=== PATIENT | male | born 1985 | race African-American/Black ===

== ENCOUNTER 2020-10-15 18:29 | Emergency (ER) | payer OTHER ==
[~2020-10-15] VITALS: Ht 175.3 cm; Wt 124.6 kg
[2020-10-15] MEDS ORDERED: IV NORMAL SALINE 1,000ML 1,000 ML IV ONE (18:45)
[2020-10-15] MEDS ORDERED: KETOROLAC 30 MG/ML VIAL. IVP ONE (18:45)
--- NOTE | 2020-10-15 18:49 | PHYS DOC ---
General Adult EDM: Chief Complaint: ABDOMINAL PAIN HPI: HPI: 35-year-old male presents with right upper quadrant abdominal pain. He has been having intermittent cramping pain in this area for last 2 weeks. It started more around the umbilicus but is more on the right side now. Today it is been more persistent he rates it as moderate. It is a cramping feeling not really sharp. He has had normal bowel movements. No urinary complaints. No history of pancreatitis or kidney stones. The patient is a daily alcohol drinker. He denies fever or chills. Review of Systems: Review of Systems: Constitutional: Denies fever or chills Eyes: Denies change in visual acuity HENT: Denies nasal congestion or sore throat Respiratory: Denies cough or shortness of breath Cardiovascular: Denies chest pain or edema GI: Right upper quadrant and epigastric abdominal pain. Denies nausea, vomiting, bloody stools or diarrhea : Denies dysuria Musculoskeletal: Denies back pain or joint pain Integument: Denies rash Neurologic: Denies headache, focal weakness or sensory changes Endocrine: Denies polyuria or polydipsia Lymphatic: Denies swollen glands Psychiatric: Denies depression or anxiety Current Medications: Current Meds: Current Medications Medications (Trade) Dose Ordered Sig/Tierra Start Time Stop Time Status Last Admin Dose Admin Ketorolac Tromethamine (Toradol 30mg Vial) 30 mg 1X ONCE 10/15/20 18:45 10/15/20 18:46 UNV Sodium Chloride 1,000 ml @ 1,000 mls/hr 1X ONCE 10/15/20 18:45 10/15/20 19:44 UNV Physical Exam: PE: Constitutional: Well developed, well nourished, morbidly obese, no acute distress, non-toxic appearance. [] HENT: Normocephalic, atraumatic, bilateral external ears normal, oropharynx moist, no oral exudates, nose normal. [] Eyes: PERRLA, EOMI, conjunctiva normal, no discharge. [] Neck: Normal range of motion, no tenderness, supple, no stridor. [] Cardiovascular: Heart rate regular rhythm, no murmur [] Lungs & Thorax: Bilateral breath sounds clear to auscultation [] Abdomen: Bowel sounds normal, soft, mild epigastric and right upper quadrant tenderness, no masses, no pulsatile masses. [] Skin: Warm, dry, no erythema, no rash. [] Back: No tenderness, no CVA tenderness. [] Extremities: No tenderness, no cyanosis, no clubbing, ROM intact, no edema. [] Neurologic: Alert and oriented X 3, normal motor function, normal sensory function, no focal deficits noted. [] Psychologic: Affect normal, judgement normal, mood normal. [] EKG: EKG: [] Radiology/Procedures: Radiology/Procedures: [] Impressions: CT abdomen and pelvis with contrast PQRS statement: CT scans at this facility use dose reduction including either automated exposure control, iterative reconstructions, and /or weight based radiation dosing via mA and kV modification when appropriate to reduce radiation dose to as low as reasonably achievable. Contrast: 75 mL Omnipaque 300 intravenous contrast. HISTORY: Right upper quadrant abdominal pain. Right flank pain. Abdomen findings: Splenomegaly measures 18 cm craniocaudal by 18 cm AP by 6 cm transverse. There may be hepatomegaly right hepatic lobe cranial caudal length 24 cm. Hypodense liver could be fatty. Dependent density within the gallbladder most likely a gallstone and prominent distention which has a diameter 6 cm. There is a recanalized periumbilical vein became with the internal mammary veins of the chest is outside the [id number]. Moderate atrophy of the pancreas. Small accessory spleen. Subcentimeter hypodensity right kidney too small to characterize presumably cysts. There is mild fat stranding of the left supra renal fat adjacent the spleen and adrenal glands there is no abnormal nephrogram and no significant renal edema evident and no hydronephrosis. Vessels demonstrate patent contrast enhancement. 3 cm oblong fatty umbilical abdominal wall hernia. No obstruction or inflammation GI tract. Appendix is negative. No abdominal fluid or adenopathy. Bones are unremarkable. Pelvis findings: There is asymmetric enlargement of the left common and external iliac veins and there is mild edema at the left extraperitoneal pelvis leading up to the groin associated with left iliac chain and inguinal adenopathy largest lymph node at the external iliac chain measuring 2.5 x 1.3 cm and at the groin measuring similarly. Bladder, prostate, rectum and bones are unremarkable. IMPRESSION: 1. Adenopathy of the left groin and at the left iliac chain of the pelvis. There is also enlargement of the left iliac vein and edema of the left groin and deep pelvis. This could represent reactive lymphadenitis from an infectious process at the groin or the pelvis. Pathologic adenopathy from lymphoma or metastatic disease is also a possibility. Reactive changes due to a DVT of the left iliac veins is also a possibility given the asymmetric enlargement of the left iliac veins. 2. Left suprarenal fat demonstrates mild stranding edema of uncertain etiology. There is no abnormal nephrogram or hydronephrosis of the kidney. 3. Hepatosplenomegaly. 4. Prominent distention of the gallbladder with a diameter of 6 cm and a gallstone. 5. The appendix is negative. 5. Other incidental findings as described above. Electronically signed by: Tracy Foreman MD (10/15/2020 7:43 PM) [facility] DICTATED AND SIGNED BY: TRACY FOREMAN MD DATE: 10/15/201933 CC: LORNEA LEONARD DO; PCP,NO ~MTH0 0 Heart Score: C/O Chest Pain: N/A Risk Factors: Risk Factors: DM, Current or recent (<one month) smoker, HTN, HLP, family history of CAD, obesity. Risk Scores: Score 0 - 3: 2.5% MACE over next 6 weeks - Discharge Home Score 4 - 6: 20.3% MACE over next 6 weeks - Admit for Clinical Observation Score 7 - 10: 72.7% MACE over next 6 weeks - Early Invasive Strategies Course & Med Decision Making: Course & Med Decision Making Pertinent Labs and Imaging studies reviewed. (See chart for details) The patient's labs remarkable for elevated liver enzymes and bilirubin. I ordered a direct bilirubin which is about 50%. The patient CT scan shows sever al abnormal findings. 1 of those is a very enlarged gallbladder with a large stone. Another incidental finding is enlargements of lymph nodes in the iliac chain. See official read for more details. The patient needs to have his gallbladder removed. I suspect that his labs are due to intermittent blockage based on the large stone that he has in the gallbladder. The patient is dealing with the pain well at home. I advised that he follow-up soon as possible with a surgeon to have his gallbladder removed. He also needs to follow-up with his primary physician for further evaluation and work-up of his other CT findings. He is stable for discharge at this time. [] Jose Disclaimer: Jose Disclaimer: This electronic medical record was generated, in whole or in part, using a voice recognition dictation system. Departure Departure: Impression: Primary Impression: Gall bladder disease Additional Impressions: Lymphadenopathy, inguinal Abnormal CT scan Disposition: HOME / SELF CARE / HOMELESS Condition: STABLE Referrals: PCPIESHA (PCP) Patient Instructions: Cholelithiasis, [id number] Additional Instructions: You need to follow-up with a surgeon to have your gallbladder removed as soon as possible. You also need to follow-up with your primary care physician to address your other abnormal findings on CT. LORENA LEONARD DO Oct 15, 2020 18:49
[2020-10-15] MEDS ORDERED: IOHEXOL 300 MG/ML 75 ML VIAL. IV ONE (19:00)
[2020-10-15 19:36] LABS: BASO % 0 % (0-3); EOS % 0 % (0-3); HEMATOCRIT 41.9 % (39.0-53.0); HEMOGLOBIN 14.2 g/dL (13.0-17.5); LYMPH # 0.6 x10^3/uL (1.0-4.8); LYMPH % 5 % (24-48); MEAN CORPUSCULAR HEMOGLOBIN 33 pg (25-35); MEAN CORPUSCULAR HGB CONC 34 g/dL (31-37); MEAN CORPUSCULAR VOLUME 98 fL (79-100); MONO # 0.8 x10^3/uL (0.0-1.1); MONO % 7 % (0-9); NEUT # 10.2 x10^3uL (1.8-7.7); NEUT % 87 % (31-73); PLATELET COUNT 80 x10^3/uL (140-400); RED BLOOD COUNT 4.26 x10^6/uL (4.30-5.70); RED CELL DISTRIBUTION WIDTH 15.2 % (11.5-14.5); WHITE BLOOD COUNT 11.6 x10^3/uL (4.0-11.0)
[2020-10-15 19:43] LABS: CALCIUM 8.8 mg/dL (8.5-10.1); CREATININE 0.8 mg/dL (0.7-1.3); GFR 133.1; POTASSIUM 4.3 mmol/L (3.5-5.1)
--- NOTE | 2020-10-15 19:46 | RAD ---
CT abdomen and pelvis with contrast PQRS statement: CT scans at this facility use dose reduction including either automated exposure cont rol, iterative reconstructions, and /or weight based radiation dosing via mA and kV modification when appropriate to reduce radiation dose to as low as reasonably achievable. Contrast: 75 mL Omnipaque 300 intravenous contrast. HISTORY: Right upper quadrant abdominal pain. Right flank pain. Abdomen findings: Splenomegaly measures 18 cm craniocaudal by 18 cm AP by 6 cm transverse. There may be hepatomegaly right hepatic lobe cranial caudal length 24 cm. Hypodense liver could be fatty. Depen dent density within the gallbladder most likely a gallstone and prominent distention which has a diam eter 6 cm. There is a recanalized periumbilical vein became with the internal mammary veins of the ch est is outside the [id number]. Moderate atrophy of the pancreas. Small accessory spleen. Subcentim eter hypodensity right kidney too small to characterize presumably cysts. There is mild fat stranding of the left suprarenal fat adjacent the spleen and adrenal glands there is no abnormal nephrogram an d no significant renal edema evident and no hydronephrosis. Vessels demonstrate patent contrast enhan cement. 3 cm oblong fatty umbilical abdominal wall hernia. No obstruction or inflammation GI tract. A ppendix is negative. No abdominal fluid or adenopathy. Bones are unremarkable. Pelvis findings: There is asymmetric enlargement of the left common and external iliac veins and ther e is mild edema at the left extraperitoneal pelvis leading up to the groin associated with left iliac chain and inguinal adenopathy largest lymph node at the external iliac chain measuring 2.5 x 1.3 cm and at the groin measuring similarly. Bladder, prostate, rectum and bones are unremarkable. IMPRESSION: 1. Adenopathy of the left groin and at the left iliac chain of the pelvis. There is also enlargement of the left iliac vein and edema of the left groin and deep pelvis. This could represent reactive lym phadenitis from an infectious process at the groin or the pelvis. Pathologic adenopathy from lymphoma or metastatic disease is also a possibility. Reactive changes due to a DVT of the left iliac veins i s also a possibility given the asymmetric enlargement of the left iliac veins. 2. Left suprarenal fat demonstrates mild stranding edema of uncertain etiology. There is no abnormal nephrogram or hydronephrosis of the kidney. 3. Hepatosplenomegaly. 4. Prominent distention of the gallbladder with a diameter of 6 cm and a gallstone. 5. The appendix is negative. 5. Other incidental findings as described above. Electronically signed by: Chalino Foreman MD (10/15/2020 7:43 PM) [facility]
[2020-10-15 19:48] LABS: ALBUMIN 3.3 g/dL (3.4-5.0); ALBUMIN/GLOBULIN RATIO 0.7 (1.0-1.7); TOTAL BILIRUBIN 5.6 mg/dL (0.2-1.0); TOTAL PROTEIN 7.8 g/dL (6.4-8.2)
[2020-10-15 21:13] LABS: BILIRUBIN,URINE MOD (NEG); CLARITY,URINE CLOUDY; COLOR,URINE AMBER; GLUCOSE,URINE 100 mg/dL (NEG); NITRITE,URINE NEG (NEG); UROBILINOGEN,URINE >=8.0 mg/dL (0.2 mg/dL)
[2020-10-15 21:26] LABS: BACTERIA,URINE 0 /HPF (0-FEW); WBC,URINE 0 /HPF (0-4)
[2020-10-15] MEDS ORDERED: ONDANSETRON PF 4 MG/2 ML VIAL. ONE ×2 (21:46→21:59)
[2020-10-15] MEDS ORDERED: MORPHINE SULFATE 2 MG/ML DISP.SYRIN. ONE (21:47)
[2020-10-15] MEDS ORDERED: METOCLOPRAMIDE HCL 10 MG/2 ML VIAL. ONE (21:59)
[2020-10-15] MEDS ORDERED: diphenhydrAMINE 50 MG/ML VIAL ONE (21:59)
[2020-10-15] MEDS ORDERED: MORPHINE SULFATE 2 MG/ML DISP.SYRIN. IV ONE (22:00)
[2020-10-15 22:06] VITALS: BP 160/90
[2020-10-15] MEDS ORDERED: ONDA4TAB12 PO (22:27)
[2020-10-15] MEDS ORDERED: METOCLOPRAMIDE HCL 10 MG/2 ML VIAL. IVP ONE (22:30)
[2020-10-15] MEDS ORDERED: diphenhydrAMINE 50 MG/ML VIAL IVP ONE (22:30)
[2020-10-15] MEDS ORDERED: ONDANSETRON PF 4 MG/2 ML VIAL. IVP ONE (22:30)
== END 2020-10-15 22:07 | disposition home or self-care (01) ==
LOC: ER 18:29
DX: K82.8 Other specified diseases of gallbladder (principal); R59.0 Localized enlarged lymph nodes; R93.5 Abnormal findings on diagnostic imaging of other abdominal regions, including retroperitoneum
CPT/HCPCS: 36415; 74177; 80053; 81001; 82248; 83690; 85025; 96361; 96374; 96375; 99285; J1200; J1885; J2405; J2765; J7030; Q9967

== ENCOUNTER 2021-01-30 21:47 | Emergency (ER) | payer SELFPAY ==
[~2021-01-30] VITALS: Ht 175.3 cm; Wt 119.2 kg
[~2021-01-30 21:47] MED LIST: ONDA4TAB12 PO
--- NOTE | 2021-01-30 21:56 | PHYS DOC ---
Past History Past Surgical History: Other Additional Past Surgical Histo: ankle surgery got infected in september 2019 Alcohol Use: Heavy Adult General HPI HPI Patient is a 35-year-old male, alcoholic, with last drink 2 days ago who presents with epigastric pain, nausea and vomiting for the last day. Review of Systems Review of Systems Review of systems otherwise unremarkable except noted in HPI Allergies Allergies Allergies Coded Allergies Type Severity Reaction Last Updated Verified codeine Allergy Intermediate 10/15/20 Yes Physical Exam Physical Exam Constitutional: Well developed, well nourished, no acute distress, non-toxic appearance. [] HENT: Normocephalic, atraumatic, bilateral external ears normal, oropharynx mo ist, no oral exudates, nose normal. [] Eyes: PERRLA, EOMI, conjunctiva normal, no discharge. [] Neck: Normal range of motion, no tenderness, supple, no stridor. [] Cardiovascular:Heart rate regular rhythm, no murmur [] Lungs & Thorax: Bilateral breath sounds clear to auscultation [] Abdomen: Bowel sounds normal, soft, no tenderness, no masses, no pulsatile masses. [] Skin: Warm, dry, no erythema, no rash. [] Back: No tenderness, no CVA tenderness. [] Extremities: No tenderness, no cyanosis, no clubbing, ROM intact, no edema. [] Neurologic: Alert and oriented X 3, normal motor function, normal sensory function, no focal deficits noted. [] Psychologic: Affect normal, judgement normal, mood normal. [] EKG EKG [] Radiology/Procedures Radiology/Procedures [] Heart Score C/O Chest Pain: No Risk Factors: Risk Factors: DM, Current or recent (<one month) smoker, HTN, HLP, family history of CAD, obesity. Risk Scores: Risk Factors: DM, Current or recent (<one month) smoker, HTN, HLP, family history of CAD, obesity. Course & Med Decision Making Course & Med Decision Making Patient is a 35-year-old male, who presents with epigastric pain, nausea and vomiting Vital signs notable for tachycardia and hypertension. Physical exam noted above. Patient placed on the monitor with IV access established and IV fluid given. Given nausea medicine. Laboratory analysis notable for elevated alk phos, direct and indirect bilirubin. CT with cholelithiasis with distended gallbladder, hepatosplenomegaly and hepatic steatosis Abdominal ultrasound with cholelithiasis and no evidence of cholecystitis, hepatomegaly, splenomegaly and fatty liver. Discussed all findings with patient. Given patient's symptoms, findings on imaging and laboratory analysis there is concern for biliary obstruction with choledocholithiasis and/or ascending cholangitis. Started on Zosyn. Advised admission to the hospital for continued evaluation treatment GI consult. Patient grateful, verbalized understanding and agreed with plan of transfer and admission [] Dragon Disclaimer Dragon Disclaimer This electronic medical record was generated, in whole or in part, using a voice recognition dictation system. Departure Departure: Impression: Primary Impression: Abdominal pain Additional Impressions: Nausea & vomiting Cholelithiasis Bilirubinemia Elevated alkaline phosphatase level Disposition: 02 SHORT TERM HOSPITAL Admitting Physician: Other Condition: IMPROVED Referrals: PCP,NO (PCP) Problem Qualifiers ADRIANNA PALOMO MD Jan 30, 2021 21:56
[2021-01-30] MEDS ORDERED: IOHEXOL 300 MG/ML 75 ML VIAL. IV ONE (22:00)
[2021-01-30] MEDS ORDERED: ONDANSETRON PF 4 MG/2 ML VIAL. IVP ONE ×2 (22:00→23:45)
[2021-01-30] MEDS ORDERED: METOCLOPRAMIDE HCL 10 MG/2 ML VIAL. IVP ONE (22:00)
[2021-01-30] MEDS ORDERED: CONTRAST GIVEN. MC PRN (22:00)
[2021-01-30] MEDS ORDERED: IV RINGERS SOLUTION,LACTATED 1,000 ML IV ONE (22:00)
--- NOTE | 2021-01-30 22:22 | EKG ---
[address] [address] Test Date: 2021-01-30 Test Time: 22:06:37 Pat Name: PHILIP AMAYA Department: Room: Gender: M Sound Effects Supervisor: KAELYN : 1985 Requested By: ADRIANNA PALOMO Order Number: [id number] Reading MD: Sid Moses MD Measurements Intervals [place] Rate: 109 P: 25 CO: 148 QRS: 18 QRSD: 90 T: 21 QT: 350 QTc: 473 Interpretive Statements SINUS TACHYCARDIA Electronically Signed On 01-31-2021 9:58:19 ACCELERATOR TECHNICIAN by Sid Moses MD
[2021-01-30 22:41] LABS: BASO % 1 % (0-3); EOS % 0 % (0-3); HEMATOCRIT 38.5 % (39.0-53.0); HEMOGLOBIN 13.1 g/dL (13.0-17.5); LYMPH # 1.4 x10^3/uL (1.0-4.8); LYMPH % 15 % (24-48); MEAN CORPUSCULAR HEMOGLOBIN 32 pg (25-35); MEAN CORPUSCULAR HGB CONC 34 g/dL (31-37); MEAN CORPUSCULAR VOLUME 94 fL (79-100); MONO # 0.7 x10^3/uL (0.0-1.1); MONO % 7 % (0-9); NEUT # 7.7 x10^3uL (1.8-7.7); NEUT % 78 % (31-73); PLATELET COUNT 88 x10^3/uL (140-400); RED BLOOD COUNT 4.09 x10^6/uL (4.30-5.70); WHITE BLOOD COUNT 9.9 x10^3/uL (4.0-11.0)
--- NOTE | 2021-01-30 22:45 | RAD ---
Exam: CT of abdomen and pelvis with contrast INDICATION: Epigastric pain TECHNIQUE: Sequential axial images through the abdomen and pelvis obtained following the administrati on of 75 mL of Isovue-370 IV contrast. Sagittal and coronal reformatted images were reconstructed fro m the axial data and reviewed. Exposure: One or more of the following in the visualized dose reduction techniques were utilized for this examination: 1. Automated exposure control 2. Adjustment of the MA and/or KV according to patient size 3. Use of iterative of reconstructive technique Comparisons: 10/15/2020 FINDINGS: Heart size is normal. No pericardial. Visualized lung bases are clear. No pleural effusion. Diffuse hepatic steatosis. Spleen is enlarged measuring up to 17.9 cm in long axis. Mild haziness bridget rounding the peripancreatic fat. Gallbladder is distended with gallstones noted within the gallbladde r.. Kidneys a straight symmetric enhancement. No perinephric inflammation or hydronephrosis. No renal or ureteral calculi are identified. Bladder is decompressed not well evaluated. Prostate is nonenlarged. Large and small bowel are unremarkable. Appendix is normal. No free intra-abdominal air or fluid. No obstruction. Abdominal aorta has a normal course and caliber. Abdominal vasculature is patent. No enlarged intra-abdominal lymph nodes are identified. No suspicious osseous lesions or acute fractures. IMPRESSION: 1. Small fat-containing umbilical hernia. No herniated bowel or evidence for obstruction. 2. Distended gallbladder with gallstone. Correlate with symptomatology to determine the need for fur ther evaluation with ultrasound. 3. Hepatosplenomegaly with diffuse hepatic steatosis. Electronically signed by: Gwen Branch MD (01/30/2021 10:43 PM) [facility]
[2021-01-30 22:46] LABS: BILIRUBIN,URINE SMALL (NEG); CLARITY,URINE CLEAR; COLOR,URINE YELLOW; GLUCOSE,URINE NEG (NEG); NITRITE,URINE POS (NEG)
[2021-01-30 22:47] LABS: BACTERIA,URINE 0 /HPF (0-FEW); RBC,URINE 0 /HPF (0-2); SQUAMOUS EPITHELIAL CELL,UR FEW /LPF; WBC,URINE OCC /HPF (0-4)
[2021-01-30 22:48] LABS: CALCIUM 9.4 mg/dL (8.5-10.1); CREATININE 0.8 mg/dL (0.7-1.3); GFR 133.1; POTASSIUM 3.7 mmol/L (3.5-5.1)
[2021-01-30 22:54] LABS: ALBUMIN 3.7 g/dL (3.4-5.0); ALBUMIN/GLOBULIN RATIO 0.7 (1.0-1.7); TOTAL BILIRUBIN 4.8 mg/dL (0.2-1.0); TOTAL PROTEIN 8.7 g/dL (6.4-8.2)
[2021-01-30] MEDS ORDERED: PIPERACILLIN/TAZOBACTAM 4.5 GM VIAL IV ONE (23:11)
[2021-01-30] MEDS ORDERED: IV NORMAL SALINE 50ML 50 ML ONE (23:11)
[2021-01-30] MEDS ORDERED: PIPERACILLIN/TAZOBACTAM 4.5 GM in IV NORMAL SALINE 50ML 50 ML IV ONE (23:15)
--- NOTE | 2021-01-31 00:24 | RAD ---
Complete Abdominal Ultrasound: Clinical History: Right upper quadrant. Technique: Sonographic examination of the abdomen was performed and multiple static images were obta ined. Findings: Liver: The majority is visualized and appears homogeneous. Liver measures 23 centers in length. There is increased echogenicity which further limits ultrasound sensitivity for possible solid liver lesio n. Common bile duct: Appears normal measures 5 mm in diameter. Gallbladder: There is multiple stones in the gallbladder. Portal vein: Appears normal. Pancreas: is not well visualized due to overlying bowel gas. Right kidney: appears normal and measures 11 cm in length. Left kidney appears normal and measures 12 cm in length. Spleen: Mildly more enlarged measuring 14 cm in length Impression: 1. Fatty infiltration of the liver. 2. Hepatomegaly. 3. Splenomegaly could be secondary to portal hypertension. 4. Cholelithiasis without evidence of acute cholecystitis. Electronically signed by: Merritt Olivas III, MD (01/31/2021 12:22 AM) [facility]
[2021-01-31] MEDS ORDERED: KETOROLAC 30 MG/ML VIAL. ONE (00:43)
[2021-01-31] MEDS ORDERED: IV RINGERS SOLUTION,LACTATED 1,000 ML IV ONE (00:45)
[2021-01-31] MEDS ORDERED: KETOROLAC 15 MG/ML VIAL. IVP ONE (00:45)
[2021-01-31 02:32] VITALS: BP 146/98
== END 2021-01-31 02:35 | disposition short-term general hospital (02) ==
LOC: ER 21:47
DX: K80.20 Calculus of gallbladder without cholecystitis without obstruction (principal); E80.4 Gilbert syndrome; R79.89 Other specified abnormal findings of blood chemistry; R10.13 Epigastric pain; R11.2 Nausea with vomiting, unspecified; F10.20 Alcohol dependence, uncomplicated; Z20.822 Contact with and (suspected) exposure to COVID-19; Z88.5 Allergy status to narcotic agent; Y90.9 Presence of alcohol in blood, level not specified
CPT/HCPCS: 36415; 74177; 76700; 80053; 81001; 82248; 83690; 84484; 85025; 87086; 87426; 93005; 96361; 96365; 96375; 96376; 99285; C9803; J1885; J2405; J2543; J2765; J7120; Q9967; U0003

== ENCOUNTER 2021-03-06 17:06 | Inpatient (IN) | payer SELFPAY ==
[~2021-03-06] VITALS: Ht 175.3 cm; Wt 122.1 kg
[2021-03-06] MEDS ORDERED: ONDANSETRON PF 4 MG/2 ML VIAL. IVP ONE ×2 (18:30→21:30)
[2021-03-06] MEDS ORDERED: IV NORMAL SALINE 1,000ML 1,000 ML IV ONE (18:30)
[2021-03-06 18:38] LABS: BASO % 0 % (0-3); EOS % 0 % (0-3); HEMATOCRIT 41.8 % (39.0-53.0); LYMPH # 0.8 x10^3/uL (1.0-4.8); LYMPH % 5 % (24-48); MEAN CORPUSCULAR HEMOGLOBIN 32 pg (25-35); MEAN CORPUSCULAR HGB CONC 33 g/dL (31-37); MEAN CORPUSCULAR VOLUME 95 fL (79-100); MONO # 0.9 x10^3/uL (0.0-1.1); MONO % 6 % (0-9); NEUT # 13.4 x10^3uL (1.8-7.7); NEUT % 89 % (31-73); PLATELET COUNT 85 x10^3/uL (140-400); RED CELL DISTRIBUTION WIDTH 15.2 % (11.5-14.5); WHITE BLOOD COUNT 15.1 x10^3/uL (4.0-11.0)
[2021-03-06 18:51] LABS: CREATININE 0.9 mg/dL (0.7-1.3); GFR 116.2; POTASSIUM 3.8 mmol/L (3.5-5.1)
[2021-03-06 19:03] LABS: ALBUMIN 3.6 g/dL (3.4-5.0); ALBUMIN/GLOBULIN RATIO 0.7 (1.0-1.7); TOTAL PROTEIN 8.7 g/dL (6.4-8.2)
--- NOTE | 2021-03-06 19:37 | EKG ---
[address] [address] Test Date: 2021-03-06 Test Time: 18:51:23 Pat Name: PHILIP AMAYA Department: Room: Gender: M Card Runner: : 1985 Requested By: CAMERON PATEL Order Number: [id number] Reading MD: Measurements Intervals [place] Rate: 119 P: 255 ND: 98 QRS: 19 QRSD: 88 T: 16 QT: 324 QTc: 456 Interpretive Statements SINUS TACHYCARDIA OTHERWISE NORMAL ECG RI6.02 No previous ECG available for comparison
[2021-03-06 19:43] LABS: % BANDS 11 % (0-9); % LYMPHS 9 % (24-48); % MONOS 3 % (0-10); % SEGS 77 % (35-66); PLT ESTIMATE DECREASED (ADEQUATE)
--- NOTE | 2021-03-06 20:05 | PHYS DOC ---
Past History Past Surgical History: Other Additional Past Surgical Histo: left ankle (CAMERON PATEL APRN) Alcohol Use: Heavy (CAMERON PATEL APRN) General Adult EDM: Chief Complaint: WITHDRAWAL HPI: HPI: Patient is a 35-year-old male who presents with nausea, anxiety. Patient states that he is a daily drinker and drinks 1/5 of whiskey daily. Patient has not had a drink since last night. Patient's sinus tachycardic on arrival, heart rate 119. Denies abdominal pain, vomiting or diarrhea. Denies fever or recent exposure to illness. Longest time frame patient has been without alcohol has been 1 week which was 5 months ago. Patient denies having seizures. Patient did report feeling nauseated and anxious at that time as well. Denies tobacco use or illegal drugs. Patient is not vaccinated for COVID-19. Patient has history of hypertension, asthma, insomnia. (CAMERON PATEL APRN) Review of Systems: Review of Systems: ROS At least 10 ROS systems have been reviewed and are negative except as documented in the HPI. General: Negative except as outlined in HPI above. Skin: Negative except as outlined in HPI above. HEENT: Negative except as outlined in HPI above. Neck: Negative except as outlined in HPI above. Respiratory: Negative except as outlined in HPI above.. Cardiovascular: Negative except as outlined in HPI above. Abdomen: Negative except as outlined in HPI above. : Negative except as outlined in HPI above. Back/MSK: Negative except as outlined in HPI above. Neuro: Negative except as outlined in HPI above. Psych: Negative except as outlined in HPI above. (CAMERON PATEL APRN) Current Medications: Current Meds: Current Medications Medications (Trade) Dose Ordered Sig/Tierra Start Time Stop Time Status Last Admin Dose Admin Lorazepam (Ativan Inj) 2 mg 1X ONCE 03/06/21 18:30 03/06/21 18:31 DC 03/06/21 18:25 2 MG Ondansetron HCl (Zofran) 4 mg 1X ONCE 03/06/21 18:30 03/06/21 18:31 DC 03/06/21 18:24 4 MG Sodium Chloride 1,000 ml @ 1,000 mls/hr 1X ONCE 03/06/21 18:30 03/06/21 19:29 DC 03/06/21 18:24 1,000 MLS/HR (CAMERON PATEL APRN) Allergies: Allergies: Allergies Coded Allergies Type Severity Reaction Last Updated Verified codeine Allergy Intermediate 10/15/20 Yes (CAMERON PATEL APRN) Physical Exam: PE: Constitutional: Well developed, well nourished, no acute distress, non-toxic appearance. [] HENT: Normocephalic, atraumatic, bilateral external ears normal, oropharynx moist, no oral exudates, nose normal. [] Eyes: PERRLA, EOMI, conjunctiva normal, no discharge. [] Neck: Normal range of motion, no tenderness, supple, no stridor. [] Cardiovascular:Heart rate sinus tachycardia Lungs & Thorax: Bilateral breath sounds clear to auscultation [] Abdomen: Bowel sounds normal, soft, no tenderness, no masses, no pulsatile masses. [] Skin: Warm, dry, no erythema, no rash. [] Back: No tenderness, no CVA tenderness. [] Extremities: No tenderness, no cyanosis, no clubbing, ROM intact, no edema. [] Neurologic: Alert and oriented X 3, normal motor function, normal sensory function, no focal deficits noted. [] Psychologic: Affect normal, judgement normal, anxious mood (CAMERON PATEL APRN) Current Patient Data: Labs: Laboratory Tests Test 03/06/21 18:18 White Blood Count 15.1 x10^3/uL (4.0-11.0) H Red Blood Count 4.40 x10^6/uL (4.30-5.70) Hemoglobin 14.0 g/dL (13.0-17.5) Hematocrit 41.8 % (39.0-53.0) Mean Corpuscular Volume 95 fL (79-100) Mean Corpuscular Hemoglobin 32 pg (25-35) Mean Corpuscular Hemoglobin Concent 33 g/dL (31-37) Red Cell Distribution Width 15.2 % (11.5-14.5) H Platelet Count 85 x10^3/uL (140-400) L Neutrophils (%) (Auto) 89 % (31-73) H Lymphocytes (%) (Auto) 5 % (24-48) L Monocytes (%) (Auto) 6 % (0-9) Eosinophils (%) (Auto) 0 % (0-3) Basophils (%) (Auto) 0 % (0-3) Neutrophils # (Auto) 13.4 x10^3uL (1.8-7.7) H Lymphocytes # (Auto) 0.8 x10^3/uL (1.0-4.8) L Monocytes # (Auto) 0.9 x10^3/uL (0.0-1.1) Eosinophils # (Auto) 0.0 x10^3/uL (0.0-0.7) Basophils # (Auto) 0.0 x10^3/uL (0.0-0.2) Segmented Neutrophils % 77 % (35-66) H Band Neutrophils % 11 % (0-9) H Lymphocytes % 9 % (24-48) L Monocytes % 3 % (0-10) Platelet Estimate Decreased (ADEQUATE) Sodium Level 139 mmol/L (136-145) Potassium Level 3.8 mmol/L (3.5-5.1) Chloride Level 102 mmol/L (98-107) Carbon Dioxide Level 21 mmol/L (21-32) Anion Gap 16 (6-14) H Blood Urea Nitrogen 8 mg/dL (8-26) Creatinine 0.9 mg/dL (0.7-1.3) Estimated GFR (Cockcroft-Gault) 116.2 BUN/Creatinine Ratio 9 (6-20) Glucose Level 130 mg/dL (70-99) H Calcium Level 9.0 mg/dL (8.5-10.1) Total Bilirubin 5.0 mg/dL (0.2-1.0) H Aspartate Amino Transferase (AST) 96 U/L (15-37) H Alanine Aminotransferase (ALT) 43 U/L (16-63) Alkaline Phosphatase 102 U/L (46-116) Total Protein 8.7 g/dL (6.4-8.2) H Albumin 3.6 g/dL (3.4-5.0) Albumin/Globulin Ratio 0.7 (1.0-1.7) L Lipase 57 U/L (73-393) L Ethyl Alcohol Level < 10 mg/dL (0-10) Vital Signs: Vital Signs Date Time Temp Pulse Resp B/P (MAP) Pulse Ox O2 Delivery O2 Flow Rate FiO2 03/06/21 17:40 98.2 120 18 175/99 (124) 97 (PATELCAMERON MEDICAL INSTRUCTOR) EKG: EKG: Sinus tachycardia, heart rate 119 bpm. [] (CAMERON PATEL APRN) Radiology/Procedures: Radiology/Procedures: [] (CAMERON PATEL APRN) Heart Score: C/O Chest Pain: No Risk Factors: Risk Factors: DM, Current or recent (<one month) smoker, HTN, HLP, family history of CAD, obesity. Risk Scores: Score 0 - 3: 2.5% MACE over next 6 weeks - Discharge Home Score 4 - 6: 20.3% MACE over next 6 weeks - Admit for Clinical Observation Score 7 - 10: 72.7% MACE over next 6 weeks - Early Invasive Strategies (CAMERON PATEL APRN) Course & Med Decision Making: Course & Med Decision Making Pertinent Labs and Imaging studies reviewed. (See chart for details) [] 35-year-old male who presents with nausea and anxiety. Patient is a daily drinker and has not had a drink for over 24 hours. Denies any seizures from alcohol withdrawal. Work-up in ER consisted of urinalysis, alcohol level, UDS, labs. Patient's anxiety and nausea treated while in the emergency room. Heart rate elevated at 119. Patient given NS bolus. WBC, 15.1. Total bilirubin, 5.0. Alcohol level is negative. CIWA score 12. Urinalysis, UDS, and CT of abdomen pelvis are still pending. Previous CT in January showed Fatty infiltration of the liver. Hepatomegaly.Splenomegaly could be secondary to portal hyperten kristen.Cholelithiasis without evidence of acute cholecystitis. Discussed lab results with patient. Patient still complaining of anxiety. Patient given second dose of Ativan. Patient also given banana bag. Patient reports that nausea has resolved after medication. Patient is still tachycardic after fluid administration, heart rate of 123. Patient will be admitted for alcohol withdrawal. Spoke with Dr. Muhammad who will be accepting patient. (CAMERON PATEL APRN) Course & Med Decision Making Endorsed to Dr. Heath at shift change- pending bed placement in hospital- Nursing shortage (JINA TENA MD) Rafaon Disclaimer: Dragliseth Disclaimer: This electronic medical record was generated, in whole or in part, using a voice recognition dictation system. (CAMERON PATEL APRN) Departure Departure: Impression: Primary Impression: Alcohol abuse with withdrawal Disposition: ADMITTED INPATIENT Admitting Physician: Marianne Muhammad (CAMERON PATEL APRN) Condition: STABLE Referrals: PCP,IESHA (PCP) Attending Signature Attending Signature I have participated in the care of this patient and I have reviewed and agree with all pertinent clinical information above including history, exam, and recommendations. (JINA TENA MD) Attending Signature Attending Signature I have participated in the care of this patient and I have reviewed and agree with all pertinent clinical information above including history, exam, and recommendations. (JINA TENA MD) CAMERON PATEL APRN Mar 06, 2021 20:05 JINA TENA MD Mar 07, 2021 00:47
[2021-03-06] MEDS ORDERED: MVI, ADULT NO.4 WITH VIT K 10 ML, FOLIC ACID INJ 1 MG, THIAMINE INJ 100 MG in IV RINGER... IV ONE (22:00)
[2021-03-06] MEDS ORDERED: FOLIC ACID 1 MG TABLET ONE (22:05)
[2021-03-06] MEDS ORDERED: THIAMINE 200 MG/2 ML VIAL. IV ONE (22:05)
[2021-03-06] MEDS ORDERED: MVI, ADULT NO.4 WITH VIT K 10 ML VIAL IV ONE (22:05)
--- NOTE | 2021-03-06 23:08 | RAD ---
EXAM: CT Abdomen and Pelvis without IV contrast CLINICAL HISTORY: Reason: N/V, BLOOD IN URINE, LEFT FLANK PAIN / Spl. Instructions: / History: . COMPARISON: none TECHNIQUE: Helical CT of the abdomen and pelvis without intravenous contrast. Axial, coronal and sagi ttal reformatted images were generated. PQRS compliance statement - One or more of the following individualized dose reduction techniques wer e utilized for this study: 1. Automated exposure control 2. Adjustment of the mA and/or kV according to patient size 3. Use of iterative reconstruction technique FINDINGS: Lack of intravenous contrast limits evaluation of solid organs, vasculature, and lymph nodes. Lower chest: Lung bases are clear. Abdomen and Pelvis: Hepatic hypoattenuation, fatty liver. Calcified gallstone is seen within the gallbladder. No wall thi ckening or pericholecystic fluid. No biliary ductal dilatation. Pancreas is unremarkable. Spleen is e nlarged measuring approximately 18 cm in AP dimension. Adrenal glands are unremarkable. No renal trac t calculus. No focal renal lesion. No hydronephrosis. No hydroureter. Diffuse bladder wall thickening likely cystitis. Moderate colonic stool content is seen. No small or large bowel dilatation. No spencer l obstruction. No abdominal or pelvic ascites. No abdominal or pelvic lymphadenopathy. Small fat-cont aining periumbilical hernia is seen. Aorta is normal in caliber. Bones: No aggressive osseous lesion is seen. IMPRESSION: 1. No renal tract calculus. 2. Bladder wall thickening, may be seen with cystitis and can be correlated with urinalysis. 3. Splenomegaly. 4. Moderate colonic stool content. 5. Cholelithiasis without CT evidence for acute cholecystitis. Electronically signed by: Keon Gill MD (03/06/2021 11:05 PM) [facility]
[2021-03-06 23:22] LABS: BARBITURATES NEG (NEG); BENZODIAZEPINES NEG (NEG); CANNABINOIDS NEG (NEG); COCAINE NEG (NEG); METHADONE NEG (NEG); OPIATES NEG (NEG); PHENCYCLIDINE NEG (NEG)
[2021-03-06 23:23] LABS: AMPHETAMINE/METHAMPHETAMINE POS (NEG)
[2021-03-07] MEDS ORDERED: KETOROLAC 30 MG/ML VIAL. ONE (00:47)
[2021-03-07] MEDS ORDERED: KETOROLAC 30 MG/ML VIAL. IVP ONE ×3 (01:00→17:00)
[2021-03-07] MEDS: IV NORMAL SALINE 1,000ML 1,000 ML IV SCH ×2 (01:34→11:20)
[2021-03-07 05:27] LABS: BASO % 0 % (0-3); EOS % 0 % (0-3); HEMATOCRIT 36.1 % (39.0-53.0); HEMOGLOBIN 12.1 g/dL (13.0-17.5); LYMPH # 0.6 x10^3/uL (1.0-4.8); LYMPH % 5 % (24-48); MEAN CORPUSCULAR HEMOGLOBIN 32 pg (25-35); MEAN CORPUSCULAR HGB CONC 33 g/dL (31-37); MEAN CORPUSCULAR VOLUME 95 fL (79-100); MONO # 0.7 x10^3/uL (0.0-1.1); MONO % 5 % (0-9); NEUT # 11.3 x10^3uL (1.8-7.7); NEUT % 89 % (31-73); PLATELET COUNT 69 x10^3/uL (140-400); RED BLOOD COUNT 3.82 x10^6/uL (4.30-5.70); RED CELL DISTRIBUTION WIDTH 15.1 % (11.5-14.5); WHITE BLOOD COUNT 12.7 x10^3/uL (4.0-11.0)
[2021-03-07 05:38] LABS: CREATININE 0.9 mg/dL (0.7-1.3); GFR 116.2
[2021-03-07 05:46] LABS: ALBUMIN 2.9 g/dL (3.4-5.0); ALBUMIN/GLOBULIN RATIO 0.7 (1.0-1.7); MAGNESIUM 1.1 mg/dL (1.8-2.4); TOTAL BILIRUBIN 5.3 mg/dL (0.2-1.0)
[2021-03-07] MEDS: ONDANSETRON PF 4 MG/2 ML VIAL. IVP PRN ×2 (10:43→17:05)
[2021-03-07 22:00] VITALS: BP 140/90
[2021-03-07] MEDS ORDERED: BUPR8TAB SL (22:44)
[2021-03-07] MEDS ORDERED: BUDE10.2 IH (22:44)
[2021-03-07] MEDS ORDERED: PRED-220 PO (22:44)
[2021-03-07] MEDS ORDERED: ZOLP5TAB PO (22:44)
[2021-03-07] MEDS ORDERED: ALBU2.5V8 INH (22:44)
[2021-03-07] MEDS ORDERED: IBUP400T18 PO (22:45)
[2021-03-08 05:02] VITALS: BP 157/118
[2021-03-08 05:04] VITALS: BP 126/86
[2021-03-08 10:06] LABS: ALBUMIN/GLOBULIN RATIO 0.7 (1.0-1.7); CALCIUM 8.3 mg/dL (8.5-10.1); GFR 102.9; POTASSIUM 3.8 mmol/L (3.5-5.1); TOTAL BILIRUBIN 4.7 mg/dL (0.2-1.0); TOTAL PROTEIN 7.6 g/dL (6.4-8.2)
--- NOTE | 2021-03-08 10:22 | RAD ---
EXAM: Left ankle sonogram. HISTORY: Soft tissue wound and swelling. TECHNIQUE: Sonographic imaging of the left ankle was performed. COMPARISON: None. FINDINGS: There is a complex fluid collection within the superficial soft tissues of the posterior an kle at the site of a soft tissue wound, measuring 2.8 x 2.7 x 1.6 cm. There is approximately 9 mm mandy p to the skin surface. There is medial ankle soft tissue edema, without a discrete collection. IMPRESSION: 1. 2.8 cm suspected abscess within the posterior ankle soft tissues at the level of a soft tissue wou nd. 2. Medial ankle soft tissue edema. Electronically signed by: Teresa De Guzman MD (03/08/2021 10:20 AM) [id number]
[2021-03-08 10:33] LABS: BASO % 0 % (0-3); EOS % 0 % (0-3); HEMATOCRIT 36.8 % (39.0-53.0); HEMOGLOBIN 12.4 g/dL (13.0-17.5); LYMPH # 1.7 x10^3/uL (1.0-4.8); LYMPH % 15 % (24-48); MEAN CORPUSCULAR HEMOGLOBIN 32 pg (25-35); MEAN CORPUSCULAR HGB CONC 34 g/dL (31-37); MEAN CORPUSCULAR VOLUME 95 fL (79-100); MONO # 0.9 x10^3/uL (0.0-1.1); MONO % 7 % (0-9); NEUT # 9.2 x10^3uL (1.8-7.7); NEUT % 78 % (31-73); PLATELET COUNT 70 x10^3/uL (140-400); RED BLOOD COUNT 3.89 x10^6/uL (4.30-5.70); RED CELL DISTRIBUTION WIDTH 14.9 % (11.5-14.5); WHITE BLOOD COUNT 11.8 x10^3/uL (4.0-11.0)
[2021-03-08 11:22] VITALS: BP 138/101
[2021-03-08] MEDS ORDERED: cloNIDine HCL 0.1 MG TABLET PO PRN (12:00)
[2021-03-08 15:49] VITALS: BP 136/88
[2021-03-08 15:57] LABS: BACTERIA,URINE 0 /HPF (0-FEW); BILIRUBIN,URINE SMALL (NEG); CLARITY,URINE CLEAR; COLOR,URINE YELLOW; GLUCOSE,URINE 100 mg/dL (NEG); NITRITE,URINE NEG (NEG); SQUAMOUS EPITHELIAL CELL,UR FEW /LPF; UROBILINOGEN,URINE >=8.0 mg/dL (0.2 mg/dL)
[2021-03-08] MEDS ORDERED: KETOROLAC 30 MG/ML VIAL. IM ONE (16:15)
[2021-03-08] MEDS ORDERED: ALBUTEROL SULFATE 2.5 MG/3 ML NEBU. INH PRN (16:15)
--- NOTE | 2021-03-08 16:48 | HP ---
DATE OF SERVICE: 03/08/2021 ADMIT DATE: 03/06/2021 HISTORY OF PRESENT ILLNESS: The patient is a 35-year-old -[place] male patient who came to the Emergency Room complaining of nausea and anxiety. He states that he is a daily drinker, drinks about a fifth of whiskey daily. He has not had a drink since 03/05 and the patient was in sinus tachycardia on arrival with a heart rate of 119. He denied any abdominal pain, vomiting or diarrhea. Denied any fever or recent exposure to illness. He stated that he stayed for about a week without any alcohol for the last 5 months. He denied having any seizures. Did report feeling nauseated and anxious at that time as well. Denied any tobacco or illegal drug use. He was not vaccinated for COVID-19. He was evaluated in the Emergency Room and apparently was started on alcohol withdrawal protocol. He was also found to have left lower extremity cellulitis, marked swelling of his left ankle joint. For some reason, the patient has not received any treatment in the Emergency Room for that. In fact, the plan was for him to go to an inpatient psychiatric unit for alcohol detoxification as he was seen by the psychiatric assessment team, but no placement was found for him and therefore, the patient was admitted for treatment of alcohol withdrawal and to take care of his other medical problems. PAST MEDICAL HISTORY: Significant for hypertension, bronchial asthma and alcoholism. PAST SURGICAL HISTORY: Significant for cyst removal on the right side of the neck and right elbow and fracture of the left ankle joint that was treated with open reduction and internal fixation. ALLERGIES: HE IS ALLERGIC TO CODEINE. MEDICATIONS: He is currently on the following medications: He is on albuterol sulfate by inhaler every 4 hours, ibuprofen 400 mg every 6 hours as needed, buprenorphine 8 mg sublingually daily. He is on Ambien 5 mg at bedtime. He is on Symbicort 160/4.5 mcg inhaler 2 puffs twice a day, ondansetron 4 mg every 6-8 hours and prednisone 10 mg daily p.r.n. for shortness of breath. FAMILY HISTORY: Has two sisters, one brother, older. His mother at age of 54 because of lung cancer. Father in his 60s because of pancreatic cancer. SOCIAL HISTORY: He is engaged, has 3 children. He does not smoke, but drinks a fifth of whiskey and does not use any drugs. He works for the [employer]. PHYSICAL EXAMINATION: GENERAL: When I examined him, he looked somewhat pale, not jaundiced or cyanosed, no lymphadenopathy, no thyromegaly, no jugular venous distention. No lower limb edema. He does have swelling of his left lower extremity, more so than the right lower extremity. VITAL SIGNS: His heart rate on arrival was 120, blood pressure is 175/99, temperature was 98.2, respiratory rate 18, and oxygen saturation was 97%. HEAD, EYES, EARS, NOSE, AND THROAT: Normocephalic, atraumatic. NECK: Supple. HEART: Showed normal first and second heart sounds. No gallop, rub or murmur. CHEST: Clear to auscultation, no crepitation or rhonchi. ABDOMEN: Distended, soft, nontender. NEUROLOGIC: He was awake, alert, responding appropriately. All cranial nerves intact. He moves his extremities without difficulty, although he has pain in his left foot, marked swelling and ecchymosis. LABORATORY DATA: His lab work on arrival showed a white cell count of 15,000, hemoglobin was 14, hematocrit 42, MCV 95 and platelet count was 85,000 with normal manual differential. His chemistry on arrival showed a serum sodium 139, potassium 3.8, chloride 102, bicarbonate 21, anion gap of 16, BUN 8, creatinine 0.9. Estimated GFR was 116 mL per minute. His glucose was 130, calcium was 9. Total bilirubin was 5, AST, ALT slightly elevated. Alkaline phosphatase is normal. Total protein 8.7, albumin 3.6, lipase was 57. His urinalysis was unremarkable. Toxic screen was positive for amphetamine, methamphetamine. His coronavirus by PCR was negative. He had nonvascular ultrasound of the left ankle joint, which showed that patient has a complex fluid collection within the superficial soft tissue of the posterior ankle at the site of the soft tissue wound, measuring 2.8 x 2.7 x 1.6 cm. This is approximately 9 mm deep to the skin surface. There is a medial ankle soft tissue edema without discrete collection. His CT scan of the abdomen and pelvis without contrast showed the patient has no renal tract calculi, bladder wall thickening may be seen with cystitis or can be correlated with urinalysis. He has splenomegaly, moderate colonic stool content, cholelithiasis without CT evidence of acute cholecystitis. ASSESSMENT AND PLAN: The patient was admitted and started on alcohol withdrawal protocol; however, when I saw him, he has clear evidence of left lower extremity cellulitis and has obviously an abscess in the left ankle, so my plan is to start him on IV antibiotic in the form of IV vancomycin and Zosyn. We will start him on some IV fluid. Continue with alcohol withdrawal protocol. I reconciled all his medication and he probably eventually needs to be transferred to [facility] for incision and drainage of his abscess in the left ankle joint. TIAN DR: Zhanna TID: [id number]
[2021-03-08] MEDS: VANCOMYCIN PER PHARMACY MC PRN (17:01)
--- NOTE | 2021-03-08 17:22 | RAD ---
Left foot 2 views, left ankle 2 views. HISTORY: Pain and swelling Left foot 2 views were taken of the left foot. There is extensive soft tissue swelling. There is no fracture or bony destructive process. Left ankle 2 views were taken the left ankle. There is extensive soft tissue swelling. There is an old fracture the mid fibula. There are small defects in the bones at the distal tibia and fibula probably related to old surgery. An acute ankle fracture is not identified. IMPRESSION: 1. Old healed fracture of the fibula. 2. Changes likely from old surgeries at the ankle. 3. No acute ankle fracture noted. 4. No fracture or acute osseous abnormality left foot. 5. Extensive soft tissue swelling. Electronically signed by: Vinh Ha MD (03/08/2021 5:19 PM) [facility]
[2021-03-08] MEDS: MULTIVITAMIN with MINERAL TABLET. PO SCH (17:29)
[2021-03-08] MEDS: FOLIC ACID 1 MG TABLET PO SCH (17:29)
[2021-03-08] MEDS: THIAMINE 100 MG TABLET. PO SCH (17:29)
[2021-03-08] MEDS ORDERED: VANCOMYCIN 2 GM in IV NORMAL SALINE 500ML 500 ML IV ONE (18:30)
[2021-03-08 19:31] VITALS: BP 143/87
[2021-03-08] MEDS: BUDESONIDE 0.5 MG/2 ML NEBU NEB SCH (20:00)
[2021-03-08] MEDS: ALBUTEROL SULFATE 2.5 MG/3 ML NEBU. NEB SCH (20:00)
[2021-03-08] MEDS: ZOLPIDEM 5 MG TABLET. PO PRN (20:43)
[2021-03-08] MEDS: PIPERACILLIN/TAZOBACTAM 3.375 GM in IV NORMAL SALINE 50ML 50 ML IV SCH ×2 (20:43→23:55)
[2021-03-08] MEDS ORDERED: NON FORMULARY ITEM (Budesonide/Formoterol Fumarate (Symbicort 160-4.5 Mcg Inhaler) 2 PUFF) IH SCH (21:00)
[2021-03-09 01:28] VITALS: BP 132/93
[2021-03-09] MEDS: PIPERACILLIN/TAZOBACTAM 3.375 GM in IV NORMAL SALINE 50ML 50 ML IV SCH ×3 (05:51→17:37)
[2021-03-09 06:08] VITALS: BP 131/89
[2021-03-09] MEDS: VANCOMYCIN 1.75 GM in IV NORMAL SALINE 500ML 500 ML IV SCH ×2 (06:36→18:13)
[2021-03-09] MEDS: BUDESONIDE 0.5 MG/2 ML NEBU NEB SCH (06:40)
[2021-03-09] MEDS: ALBUTEROL SULFATE 2.5 MG/3 ML NEBU. NEB SCH (06:41)
[2021-03-09 07:17] LABS: BASO % 0 % (0-3); EOS # 0.2 x10^3/uL (0.0-0.7); EOS % 3 % (0-3); HEMATOCRIT 34.8 % (39.0-53.0); HEMOGLOBIN 11.7 g/dL (13.0-17.5); LYMPH # 2.1 x10^3/uL (1.0-4.8); LYMPH % 26 % (24-48); MEAN CORPUSCULAR HEMOGLOBIN 32 pg (25-35); MEAN CORPUSCULAR HGB CONC 34 g/dL (31-37); MEAN CORPUSCULAR VOLUME 95 fL (79-100); MONO # 0.9 x10^3/uL (0.0-1.1); MONO % 12 % (0-9); NEUT # 4.7 x10^3uL (1.8-7.7); NEUT % 59 % (31-73); PLATELET COUNT 68 x10^3/uL (140-400); RED BLOOD COUNT 3.67 x10^6/uL (4.30-5.70); RED CELL DISTRIBUTION WIDTH 15.1 % (11.5-14.5)
[2021-03-09 07:30] LABS: ALBUMIN 2.6 g/dL (3.4-5.0); ALBUMIN/GLOBULIN RATIO 0.6 (1.0-1.7); CALCIUM 8.1 mg/dL (8.5-10.1); CREATININE 0.9 mg/dL (0.7-1.3); GFR 116.2; POTASSIUM 3.5 mmol/L (3.5-5.1); TOTAL BILIRUBIN 3.3 mg/dL (0.2-1.0); TOTAL PROTEIN 6.7 g/dL (6.4-8.2)
[2021-03-09] MEDS: MULTIVITAMIN with MINERAL TABLET. PO SCH (08:37)
[2021-03-09] MEDS: LACTOBACILLUS RHAMNOSUS GG 1 CAPSULE. PO SCH ×2 (08:37→20:30)
[2021-03-09] MEDS: THIAMINE 100 MG TABLET. PO SCH (08:37)
[2021-03-09] MEDS: FOLIC ACID 1 MG TABLET PO SCH (08:37)
[2021-03-09] MEDS: predniSONE 10 MG TABLET. PO SCH (08:37)
[2021-03-09] MEDS ORDERED: BUPRENORPHINE HCL SL SCH (09:00)
[2021-03-09 11:06] VITALS: BP 130/90
--- NOTE | 2021-03-09 13:36 | PN ---
DATE: 03/09/2021 ATTENDING PHYSICIANS: Dr. Muhammad/Dr. Coughlin. SUBJECTIVE: He wants to go home. He has very little insight. He understands that he needs to be transferred to [place] for surgical debridement of his right ankle wound and abscess. OBJECTIVE FINDINGS: VITAL SIGNS: Blood pressure this morning is 131/89, temperature 98.8 degrees Fahrenheit, pulse 93 and regular, and his oxygen saturation 98% on room air. HEENT: Head is without trauma. Pupils are reactive. Sclerae are nonicteric. The oropharynx is clear. NECK: Supple, no bruits identified. LUNGS: Clear. CARDIOVASCULAR: Showed regular heart tones. ABDOMEN: Soft. EXTREMITIES: Showed significant edema and swelling of the left ankle extending all the way up to his knees. It is painful to touch. There is no obvious drainage. IMAGING STUDIES: Imaging studies of the ankle shows no obvious fluid collection, but there is significant soft tissue swelling. ASSESSMENT: 1. A 35-year-old gentleman with chronic alcoholism. 2. Cellulitis of the left foot. 3. Most likely, he has an abscess to the ankle, which needs to be addressed surgically. PLAN: 1. Continue antibiotics here. 2. He wants to go home and wait until after [place]. I told him that he would have to leave AMA and sign the papers against medical advice. 3. Monitor for withdrawal symptoms. 4. I should try to contact [facility] to see if they have a bed available. VIK/FRANKIE DR: Avani TID: [id number]
[2021-03-09 15:55] VITALS: BP 156/93
[2021-03-09 19:00] VITALS: BP 128/87
[2021-03-09 23:00] VITALS: BP 152/105
[2021-03-09] MEDS: ZOLPIDEM 5 MG TABLET. PO PRN (23:00)
[2021-03-10] MEDS: PIPERACILLIN/TAZOBACTAM 3.375 GM in IV NORMAL SALINE 50ML 50 ML IV SCH ×3 (00:11→11:45)
[2021-03-10 05:00] VITALS: BP 132/79
[2021-03-10 07:02] LABS: VANC TR 7.5 mcg/mL (10.0-20.0)
[2021-03-10] MEDS ORDERED: VANCOMYCIN 1.5 GM in IV NORMAL SALINE 500ML 500 ML IV SCH (08:30)
[2021-03-10] MEDS: THIAMINE 100 MG TABLET. PO SCH (08:45)
[2021-03-10] MEDS: FOLIC ACID 1 MG TABLET PO SCH (08:45)
[2021-03-10] MEDS: predniSONE 10 MG TABLET. PO SCH ×2 (08:45→08:53)
[2021-03-10] MEDS: MULTIVITAMIN with MINERAL TABLET. PO SCH (08:45)
[2021-03-10] MEDS: LACTOBACILLUS RHAMNOSUS GG 1 CAPSULE. PO SCH (08:45)
[2021-03-10] MEDS: VANCOMYCIN PER PHARMACY MC PRN (10:19)
[2021-03-10] MEDS ORDERED: LORazepam 1 MG TABLET PO PRN (10:30)
[2021-03-10] MEDS ORDERED: ONDANSETRON PF 4 MG/2 ML VIAL. IVP PRN (10:45)
[2021-03-10 11:28] VITALS: BP 116/81
[2021-03-10] MEDS ORDERED: oxyCODONE/APAP 10/325 1 TAB TABLET PO PRN (11:30)
[2021-03-10] MEDS ORDERED: traMADol 50 MG TABLET PO PRN (12:15)
[2021-03-10 15:41] VITALS: BP 146/99
--- NOTE | 2021-03-10 20:50 | DS ---
DATE OF DISCHARGE: 03/10/2021 ATTENDING PHYSICIAN: Dr. Muhammad. FINAL DISCHARGE DIAGNOSES: 1. Cellulitis and abscess of the left foot. 2. Chronic alcoholism. 3. Underlying depression with anxiety. 4. Noncompliance of meds. HISTORY AND PHYSICAL: The patient is a 35-year-old gentleman, chronic alcoholic. He has 2 problems. He was intoxicated. He was admitted for acute alcohol intoxication. Monitoring withdrawal symptoms as well as infection of his left foot. The left ankle has been swollen for over a month now. X-rays showed no foreign bodies. It did not appear to be osteomyelitis. Regardless, there is a possibility of abscess and he needed an incision and drainage and we do not have that capability here. According to Dr. Muhammad's note, the plan was to get him admitted, started him on antibiotics and then transfer him to a where we can seek appropriate surgical consultation with anticipation of incision and drainage. PHYSICAL EXAMINATION: Please see the dictated note. PERTINENT LABORATORY AND X-RAY STUDIES: On the database. COURSE IN THE HOSPITAL: The patient was admitted. He was started on broad spectrum antibiotics. Monitor for signs of withdrawal. We also treated for pain and nausea. Unfortunately, he was on a waiting list since admission. [facility] does not have an open bed, there was a long line waiting list and since he was not a priority with COVID and respiratory issues, he was placed in a back of a line. The patient became agitated and unfortunately on the afternoon of 03/10 he left the hospital against medical advice. He was hoping to get outpatient therapy, we do not have access. He is a ____ stick or IV access; therefore, we were not able to continue his antibiotics. He states that he will try to get into [facility] after the hol. In any event, the patient left the hospital against medical advice on the afternoon of 03/10/2021. JAE CRAMER: Avani TID: [id number]
== END 2021-03-10 16:00 | disposition left against medical advice (07) | DRG 603 ==
LOC: ER 17:06 → ER HOLD 21:58 → 1 SOUTH 03-07 16:42 → UNDOADMIN 03-07 16:42 → 1 SOUTH 03-07 17:00
PROVIDERS: ADMIT Internal Medicine; ATTEND Internal Medicine
DX: L03.116 Cellulitis of left lower limb (principal); F10.239 Alcohol dependence with withdrawal, unspecified; L02.612 Cutaneous abscess of left foot; F41.8 Other specified anxiety disorders; F10.229 Alcohol dependence with intoxication, unspecified; I10 Essential (primary) hypertension; J45.909 Unspecified asthma, uncomplicated; Z80.0 Family history of malignant neoplasm of digestive organs; Z80.1 Family history of malignant neoplasm of trachea, bronchus and lung; Z91.14 Patient's other noncompliance with medication regimen; G47.00 Insomnia, unspecified; Z53.29 Procedure and treatment not carried out because of patient's decision for other reasons; Z20.822 Contact with and (suspected) exposure to COVID-19
CPT/HCPCS: 36415; 73600; 73620; 74176; 76882; 80053; 80202; 80307; 81001; 83605; 83690; 83735; 85007; 85025; 87040; 87426; 93005; 96361; 96365; 96366; 96375; 96376; G0480; J1885; J2060; J2405; J2543; J3370; J7040; J7120; J7512; U0003; 99285-25; J7030

== ENCOUNTER 2021-07-13 10:20 | Emergency (ER) | payer OTHER ==
[~2021-07-13] VITALS: Ht 175.3 cm; Wt 122.1 kg
[~2021-07-13 10:20] MED LIST changes: +ALBU2.5V8 INH; +BUDE10.2 IH; +BUPR8TAB SL; +IBUP400T18 PO; +PRED-220 PO; +ZOLP5TAB PO
[2021-07-13] MEDS ORDERED: ONDANSETRON ODT 4 MG TAB.RAPDIS PO ONE (10:45)
[2021-07-13] MEDS ORDERED: LORazepam 1 MG TABLET PO ONE (11:00)
--- NOTE | 2021-07-13 12:17 | PHYS DOC ---
Past History Past Surgical History: Other Additional Past Surgical Histo: left ankle (CAMERON PATEL APRN) Alcohol Use: Heavy (CAMERON PATEL APRN) General Adult EDM: Chief Complaint: NAUSEA/VOMITING/DIARRHEA HPI: HPI: Patient is a 36-year-old male presents with nausea and vomiting. Patient states that he is a daily drinker and last drink was last night. Patient reports that his pain will improve after he drinks. Patient is also reporting some anxiety. Patient's been prescribed Ativan in the past but does not currently have a prescription. Denies abdominal pain. Denies fever. No exposure to recent illness. (CAMERON PATEL APRN) Review of Systems: Review of Systems: ROS At least 10 ROS systems have been reviewed and are negative except as documented in the HPI. General: Negative except as outlined in HPI above. Skin: Negative except as outlined in HPI above. HEENT: Negative except as outlined in HPI above. Neck: Negative except as outlined in HPI above. Respiratory: Negative except as outlined in HPI above.. Cardiovascular: Negative except as outlined in HPI above. Abdomen: Negative except as outlined in HPI above. : Negative except as outlined in HPI above. Back/MSK: Negative except as outlined in HPI above. Neuro: Negative except as outlined in HPI above. Psych: Negative except as outlined in HPI above. (CAMERON PATEL APRN) Current Medications: Current Meds: Current Medications Medications (Trade) Dose Ordered Sig/Tierra Start Time Stop Time Status Last Admin Dose Admin Lorazepam (Ativan) 1 mg 1X ONCE 07/13/21 11:00 07/13/21 11:04 DC 07/13/21 11:36 1 MG Ondansetron HCl (Zofran Odt) 4 mg 1X ONCE 07/13/21 10:45 07/13/21 11:04 DC 07/13/21 11:36 4 MG (CAMERON PATEL APRN) Allergies: Allergies: Allergies Coded Allergies Type Severity Reaction Last Updated Verified codeine Allergy Intermediate 10/15/20 Yes (CAMERON PATEL APRN) Physical Exam: PE: Constitutional: Well developed, well nourished, no acute distress, non-toxic appearance. [] HENT: Normocephalic, atraumatic, bilateral external ears normal, oropharynx moist, no oral exudates, nose normal. [] Eyes: PERRLA, EOMI, conjunctiva normal, no discharge. [] Neck: Normal range of motion, no tenderness, supple, no stridor. [] Cardiovascular:Heart rate regular rhythm, no murmur [] Lungs & Thorax: Bilateral breath sounds clear to auscultation [] Abdomen: Bowel sounds normal, soft, no tenderness Skin: Warm, dry, no erythema, no rash. [] Back: No tenderness, no CVA tenderness. [] Extremities: No tenderness, no cyanosis, no clubbing, ROM intact, no edema. [] Neurologic: Alert and oriented X 3, normal motor function, normal sensory function, no focal deficits noted. [] Psychologic: Flat affect, anxious mood (CAMERON PATEL APRN) Current Patient Data: Vital Signs: Vital Signs Date Time Temp Pulse Resp B/P (MAP) Pulse Ox O2 Delivery O2 Flow Rate FiO2 07/13/21 10:52 98.0 110 18 159/95 (116) 97 Room Air (CAMERON PATEL APRN) EKG: EKG: [] (CAMERON PATEL APRN) Radiology/Procedures: Radiology/Procedures: [] (CAMERON PATEL APRN) Heart Score: C/O Chest Pain: No Risk Factors: Risk Factors: DM, Current or recent (<one month) smoker, HTN, HLP, family history of CAD, obesity. Risk Scores: Score 0 - 3: 2.5% MACE over next 6 weeks - Discharge Home Score 4 - 6: 20.3% MACE over next 6 weeks - Admit for Clinical Observation Score 7 - 10: 72.7% MACE over next 6 weeks - Early Invasive Strategies (CAMERON PATEL APRN) Course & Med Decision Making: Course & Med Decision Making Pertinent Labs and Imaging studies reviewed. (See chart for details) [] 36-year-old male presents with nausea and vomiting. Patient is a daily drinker and last drink was last night. Patient is also reporting some anxiety. Patient is prescribed Ativan but has not had a prescription filled in a while. Denies abdominal pain. No fever. Patient reports nausea improves when he drinks. Patient given 1 of Ativan and 4 mg ODT Zofran. All labs unremarkable. Patient should abstain from alcohol use. Drink plenty of fluids. Discussed return precautions. (PATELCAMERON Disclaimer: Jose Disclaimer: This electronic medical record was generated, in whole or in part, using a voice recognition dictation system. (CAMERON PATEL APRN) Attending Co-Sign The patient was seen and interviewed as well as examined at the bedside. The chart was reviewed. The case was discussed. Agree with the plan of care. (LORENA LEONARD DO) Departure Departure: Impression: Primary Impression: Nausea & vomiting Qualified Codes: R11.2 - Nausea with vomiting, unspecified Additional Impression: Anxiety Disposition: HOME / SELF CARE / HOMELESS Condition: STABLE Referrals: PCP,NO (PCP) Patient Instructions: Nausea and Vomiting, [id number] Additional Instructions: You are seen the emergency room for nausea/vomiting/anxiety. All your labs were unremarkable. You were given fluids nausea medication and anxiety medication. Please follow-up with your PCP for further management and represcribe your anxiety medication. You should abstain from alcohol use. Drink plenty of fluids. Return emergency room if you have worsening symptoms or concerns. EMERGENCY DEPARTMENT GENERAL DISCHARGE INSTRUCTIONS Thank you for coming to [facility] (ED) today and trusting us with you care. We trust that you had a positivie experience in our Emergency Department. If you wish to speak to the department management, you may call the director at [phone]. YOUR FOLLOW UP INSTRUCTIONS ARE FOLLOWS: 1. Do you have a private Doctor? If you do not have a private doctor, please ask for a resource list of physicians or clinics that may be able to assist you with follow up care. 2. The Emergency Physician has interpreted your x-rays. The X-Ray specialist will also review them. If there is a change in the findings, you will be notified in 48 hours when at all possible. 3. A lab test or culture has been done, your results will be reviewed and you will be notified if you need a change in treatment. ADDITIONAL INSTRUCTIONS AND INFORMATION: 1. Your care today has been supervised by a physician who is specially trained in emergency care. Many problems require more than one evaluation for a complete diagnosis and treatment. We recommend that you schedule your follow up appointment as recommended to ensure complete treatment of you illness or injury. If you are unable to obtain follow up care and continue to have a problem, or if your condition worsens, we recommend that you return to the ED. 2. We are not able to safely determine your condition over the phone nor are we able to give sound medical advice over the phone. For these safety reasons, if you call for medical advice we will ask you to come to the ED for further evaluation. 3. If you have any questions regarding these discharge instructions please call the ED at [phone]. SAFETY INFORMATION: In the interest of safety, wellness, and injury prevention; we encourage you to wear your sealbelt, if you smoke; quite smoking, and we encourage family to use a protective helmet for bicycling and other sporting events that present an increased risk for head injury. IF YOUR SYMPTOMS WORSEN OR NEW SYMPTOMS DEVELOP, OR YOU HAVE CONCERNS ABOUT YOUR CONDITION; OR IF YOUR CONDITION WORSENS WHILE YOU ARE WAITING FOR YOUR FOLLOW UP APPOINTMENT; EITHER CONTACT YOUR PRIMARY CARE DOCTOR, THE PHYSICIAN WHOSE NAME AND NUMBER YOU WERE GIVEN, OR RETURN TO THE ED IMMEDIATELY. CAMERON PATEL APRN Jul 13, 2021 12:16 LORENA LEONARD DO Jul 14, 2021 06:06
[2021-07-13] MEDS ORDERED: IV NORMAL SALINE 1,000ML 1,000 ML IV ONE (12:30)
[2021-07-13] MEDS ORDERED: ONDANSETRON PF 4 MG/2 ML VIAL. IVP ONE (12:30)
[2021-07-13 13:21] LABS: BASO % 1 % (0-3); EOS % 0 % (0-3); HEMATOCRIT 39.5 % (39.0-53.0); HEMOGLOBIN 13.2 g/dL (13.0-17.5); LYMPH # 0.7 x10^3/uL (1.0-4.8); LYMPH % 16 % (24-48); MEAN CORPUSCULAR HEMOGLOBIN 32 pg (25-35); MEAN CORPUSCULAR HGB CONC 33 g/dL (31-37); MEAN CORPUSCULAR VOLUME 94 fL (79-100); MONO # 0.3 x10^3/uL (0.0-1.1); MONO % 8 % (0-9); NEUT # 3.3 x10^3uL (1.8-7.7); NEUT % 75 % (31-73); PLATELET COUNT 69 x10^3/uL (140-400); RED BLOOD COUNT 4.19 x10^6/uL (4.30-5.70); RED CELL DISTRIBUTION WIDTH 15.8 % (11.5-14.5); WHITE BLOOD COUNT 4.4 x10^3/uL (4.0-11.0)
[2021-07-13 16:10] VITALS: BP 143/96
== END 2021-07-13 16:10 | disposition home or self-care (01) ==
LOC: ER 10:20
DX: R11.2 Nausea with vomiting, unspecified (principal); F41.9 Anxiety disorder, unspecified; F10.20 Alcohol dependence, uncomplicated; Y90.9 Presence of alcohol in blood, level not specified; Z88.5 Allergy status to narcotic agent
CPT/HCPCS: 36415; 85025; 96361; 96374; 99285; J2405; J7030; Q0162